=== PATIENT | female | born 1955 | race Hispanic/Latino ===

== ENCOUNTER 2021-10-29 21:15 | Emergency (ER) | payer OTHER ==
[2021-10-29 22:02] LABS: #Eosinphils 0.1 10x3/uL (0.0-0.5); #Monocytes 0.4 10x3/uL (0.0-1.1); #Neutrophils 4.9 10x3/uL (1.5-8.4); %Basophils 0.1 % (0.0-2.0); %Eosinophils 0.6 % (0.0-6.0); %Lymphocytes 30.1 % (18.0-47.0); %Monocytes 5.1 % (0.0-10.0); %Neutrophils 63.5 % (40.0-75.0); Hemoglobin 9.3 g/dL (12.0-15.5); Mean Corpuscular HGB CONC 29.8 g/dL (32.0-36.0); Mean Corpuscular Hemoglobin 25.8 pg (27.0-33.0); Mean Corpuscular Volume 86.7 fl (81.6-98.3); Mean Platelet Volume 10.3 fl (7.4-10.4); Platelet Count 187 10x3/uL (150-450); White Blood Cell (WBC) Count 7.7 10x3/uL (3.5-10.5)
[2021-10-29 22:08] LABS: ALT (SGPT) 14 U/L (8-55); AST (SGOT) 19 U/L (5-34); Albumin 3.2 g/dL (3.4-4.8); Alkaline Phosphatase 111 U/L (40-110); Anion Gap 12 mmol/L (10-20); BUN (Urea Nitrogen) 23 mg/dL (9.8-20.1); Bilirubin, Total 0.2 mg/dL (0.2-1.2); Calc. Creatinine Clearance 0 mL/min (70-130); Calcium 8.8 mg/dL (7.8-10.44); Carbon Dioxide 33 mmol/L (23-31); Chloride 103 mmol/L (98-107); Estimated GFR 98; Globulin 3.3 g/dL (2.4-3.5); Glucose 114 mg/dL (80-115); Potassium 3.4 mmol/L (3.5-5.1); Protein, Total 6.5 g/dL (5.8-8.1); Sodium 145 mmol/L (136-145)
[2021-10-29] MEDS ORDERED: traMADol HCl 50 MG TAB ONE ×2 (22:20→23:33)
[2021-10-29 22:23] LABS: Platelet Morphology Comment Appears Adequate; RBC Morphology Normal
[2021-10-29] MEDS ORDERED: Furosemide 40 MG/4 ML VIAL ONE (23:00)
== END 2021-10-29 23:50 | disposition home or self-care (01) ==
LOC: CSHERS 21:15
DX: I11.0 Hypertensive heart disease with heart failure (principal); I50.9 Heart failure, unspecified; R51.9 Headache, unspecified
CPT/HCPCS: 71045; 80053; 83880; 84484; 85025; 93005; 96374; J1940